=== PATIENT | male | born 1995 | race Caucasian/White ===

== ENCOUNTER 2017-09-21 16:37 | Emergency (ER) | payer OTHER ==
--- NOTE | 2017-09-21 18:43 | EDM.PDOC ---
ED HPI GENERAL MEDICAL PROBLEM - General Chief Complaint: Flank Pain Stated Complaint: POSSIBLE KIDNEY STONES Time Seen by Provider: 09/21/17 17:23 Source of Information: Reports: Patient History Limitations: Reports: No Limitations - History of Present Illness INITIAL COMMENTS - FREE TEXT/NARRATIVE: Complains of rt flank and rlq pain since this am. Initially very sever now jusst dull ache in rlq rad to groin. No blood. Right Lower Abdominal Pain Score (Numeric/FACES): 2 - Related Data Allergies Allergy/AdvReac Type Severity Reaction Status Date / Time No Known Allergies Allergy Verified 09/21/17 17:13 Home Meds: Home Meds NK [No Known Home Meds] 09/21/17 [History] Social & Family History - Tobacco Use Smoking Status *Q: Never Smoker - Caffeine Use Caffeine Use: Reports: None - Recreational Drug Use Recreational Drug Use: No ED ROS GENERAL - Review of Systems Review Of Systems: ROS reveals no pertinent complaints other than HPI. ED EXAM, RENAL/ - Physical Exam Exam: See Below Exam Limited By: No Limitations General Appearance: Alert, WD/WN, No Apparent Distress Respiratory/Chest: Lungs Clear Cardiovascular: Regular Rate, Rhythm GI/Abdominal: Soft, Non-Tender, No Mass Back Exam: No: CVA Tenderness (R), CVA Tenderness (L) Extremities: Normal Inspection Neurological: Alert, Oriented Course - Vital Signs Last Recorded V/S: Last Vital Signs Temp 36.5 C 09/21/17 17:15 Pulse 63 09/21/17 17:15 Resp 16 09/21/17 17:15 BP 109/55 L 09/21/17 17:15 Pulse Ox 97 09/21/17 17:15 - Orders/Labs/Meds Orders: Active Orders 24 hr Category Date Time Status UA W/MICROSCOPIC [URIN] Urgent Lab 09/21/17 17:40 Ordered Labs: Laboratory Tests 09/21/17 Range/Units 17:40 Urine Color Yellow Urine Appearance Cloudy Urine pH 9.0 H (4.5-8.0) Ur Specific [place] 1.015 (1.008-1.030) Urine Protein Negative (NEGATIVE) mg/dL Urine Glucose (UA) Normal (NEGATIVE) mg/dL Urine Ketones Negative (NEGATIVE) mg/dL Urine Occult Blood Moderate (NEGATIVE) Urine Nitrite Negative (NEGAITVE) Urine Bilirubin Negative (NEGATIVE) Urine Urobilinogen Normal (NORMAL) mg/dL Ur Leukocyte Esterase Negative (NEGATIVE) Urine RBC 10-20 H (0-5) Urine WBC 0-5 (0-5) Ur Epithelial Cells Rare Amorphous Sediment Many Urine Bacteria Moderate Urine Mucus Few - Re-Assessments/Exams Free Text/Narrative Re-Assessment/Exam: 09/21/17 18:38 trace hematuria. Discussed ureterolithiasis. I advised against CT since very likely to pass small stone. See doc if not passed in few days. Departure - Departure Time of Disposition: 18:39 Disposition: Home, Self-Care 01 Condition: Fair Clinical Impression: Ureteric colic - Discharge Information Referrals: PCP,None [Primary Care Provider] - Additional Instructions: Probably you are passing a small kidney stone. Most people will pass stones within a day or so. The stone may have passed into the bladder already. I advise against a CT scan at this time. Just strain the urine to see if a stone passes. If symptoms continue more than about 2 more days then your doctor may want to get a CT. Once the episode is over you shoulld get the urine tested to be sure there is no more blood. Percocet for pain, May cause sedation and impair driving. Zofran for nausea associated with Percocet. - My Orders Last 24 Hours: My Active Orders 09/21/17 17:40 UA W/MICROSCOPIC [URIN] Urgent - Assessment/Plan Last 24 Hours: My Active Orders 09/21/17 17:40 UA W/MICROSCOPIC [URIN] Urgent
== END 2017-09-21 18:49 | disposition home or self-care (01) ==
LOC: JP.ED 16:37
DX: N23 Unspecified renal colic (principal)
CPT/HCPCS: 81001; 99284